=== PATIENT | male | born 1950 | race African-American/Black ===

== ENCOUNTER 2017-10-06 19:49 | Inpatient (IN) ==
[2017-10-06 22:18] LABS: Basophils % 0.4 % (0.0-0.8); Eosinophils % 0.3 % (0.00-10.9); Hematocrit 40.7 VOL% (42.0-52.0); Hemoglobin 13.8 GM/DL (14.0-18.0); Immature Granulocytes % 0.4 %; Immature Granulocytes Absolute 0.03 #; Lymphocytes % 14.8 % (21.2-54.2); Mean Corpuscular HGB Conc 33.9 GM/DL (32-36); Mean Corpuscular Hemoglobin 30 PG (27-34); Mean Corpuscular Volume 89.3 FL (87-102); Mean Platelet Volume 12.8 FL (9.6-12.0); Monocytes # 0.5 10*3/uL (0.11-0.8); Monocytes % 7.9 % (1.7-12.7); Neutrophils # 5.2 10*3/uL (1.4-7.4); Neutrophils % 76.2 % (38.7-73.9); Platelet Count 112 T/CUMM (130-400); Red Blood Count 4.56 MC/CUMM (3.8-5.5); Red Cell Distribution Width 15.7 % (9.3-17.3); White Blood Count 6.9 T/CUMM (4-12)
[2017-10-06 22:47] LABS: Albumin 3.3 G/DL (3.4-5.0); Bilirubin,Total 0.7 MG/DL (0.2-1.0); Calcium 9.1 MG/DL (8.5-10.1); Osmolality,Calculated 278.7 MOS/KG (273-304); Potassium 4.6 MMOL/L (3.5-5.1); Total Protein 7.1 G/DL (6.4-8.3)
[2017-10-06 23:29] LABS: Apearance,Urine CLEAR (Clear); Bilirubin,Urine Negative (Negative); Blood, Urine Small mg/dL (Negative); Glucose,Urine (UA) Negative (Negative); Hyaline Casts,Urine 15 /LPF (0-3); Ketones,Urine Negative (Negative); Mucus,Urine Occasional /LPF (Occasional); Nitrite,Urine Negative (Negative); Protein,Urine Negative; RBC,Urine 1 /HPF (0-4); Squamous Epithelial Cell,Urine Occasional /HPF (0-10); Urine Color Yellow (Yellow); Urine Specific Gravity 1.013 (1.001-1.035); Urine Urobilinogen < 2.0 EU/DL (0.2-1.0); WBC,Urine <1 /HPF (0-6)
[2017-10-06] MEDS ORDERED: LEVOFLOXACIN INJ 500 MG in PREMIX 1 EACH IV STA (23:30)
[2017-10-06] MEDS ORDERED: FUROSEMIDE 40 MG/4 ML VIAL IV STA (23:31)
[2017-10-06] MEDS ORDERED: traZODone 50 MG TABLET PO PRN (23:54)
[2017-10-06] MEDS ORDERED: DOCUSATE SODIUM 100 MG CAPSULE PO PRN (23:54)
[2017-10-06] MEDS ORDERED: ONDANSETRON 4 MG/2 ML VIAL IV PRN (23:54)
[2017-10-07] MEDS ORDERED: GLUCAGON 1 MG VIAL IM PRN (00:05)
[2017-10-07] MEDS ORDERED: DEXTROSE 50% 25 GM/50 ML VIAL IV PRN (00:05)
[2017-10-07] MEDS ORDERED: NITROGLYCERIN SL 0.4 MG TABLET SL PRN (00:11)
[2017-10-07] MEDS ORDERED: CARBOXYMETHYLCELLULOSE 1% OPH SOLN BOTH EYES PRN (00:11)
[2017-10-07] MEDS: ALBUTEROL 2.5 MG/3 ML NEB RESP TX SCH ×4 (01:45→19:45)
[2017-10-07] MEDS: diphenhydrAMINE CAP 25 MG CAPSULE PO SCH ×2 (03:03→21:46)
[2017-10-07] MEDS: ACETAMINOPHEN 325 MG TABLET PO PRN ×2 (03:03→16:59)
[2017-10-07 05:40] LABS: Basophils % 0.3 % (0.0-0.8); Eosinophils % 0.2 % (0.00-10.9); Hematocrit 42.5 VOL% (42.0-52.0); Immature Granulocytes % 0.3 %; Immature Granulocytes Absolute 0.02 #; Lymphocytes % 15.2 % (21.2-54.2); Mean Corpuscular HGB Conc 32.9 GM/DL (32-36); Mean Corpuscular Hemoglobin 30 PG (27-34); Mean Corpuscular Volume 90.6 FL (87-102); Monocytes # 0.5 10*3/uL (0.11-0.8); Monocytes % 7.8 % (1.7-12.7); Neutrophils # 4.8 10*3/uL (1.4-7.4); Neutrophils % 76.2 % (38.7-73.9); Red Blood Count 4.69 MC/CUMM (3.8-5.5); Red Cell Distribution Width 15.9 % (9.3-17.3); White Blood Count 6.3 T/CUMM (4-12)
[2017-10-07 05:44] LABS: Platelet Count 97 T/CUMM (130-400)
[2017-10-07 05:59] LABS: Calcium 8.5 MG/DL (8.5-10.1); Osmolality,Calculated 274.1 MOS/KG (273-304); Potassium 4.5 MMOL/L (3.5-5.1)
[2017-10-07 06:38] LABS: Hypochromasia 1+; Platelet Estimate Decreased
[2017-10-07 06:39] LABS: Ovalocytes Slight
[2017-10-07] MEDS: INSULIN LISPRO 100 UNIT/ML SUBCUT SCH ×4 (08:22→21:45)
[2017-10-07] MEDS: INSULIN NPH/REGULAR 70/30 100 UNIT/ML SUBCUT SCH ×2 (09:16→21:44)
[2017-10-07] MEDS: MONTELUKAST 10 MG TABLET PO SCH (09:16)
[2017-10-07] MEDS: COLCHICINE 0.6 MG TABLET PO SCH ×2 (09:16→21:46)
[2017-10-07] MEDS: FUROSEMIDE 40 MG/4 ML VIAL IV SCH ×2 (09:16→16:56)
[2017-10-07] MEDS: BISOPROLOL 5 MG TABLET PO SCH (09:16)
[2017-10-07] MEDS: ASPIRIN CHEW 81 MG TABLET PO SCH (09:20)
[2017-10-07] MEDS: PANTOPRAZOLE 40 MG TABLET PO SCH (09:20)
[2017-10-07] MEDS: SACUBITRIL/VALSARTAN 49-51 MG TABLET PO SCH ×2 (09:21→21:46)
[2017-10-07] MEDS: ENOXAPARIN 30 MG/0.3 ML SYRINGE SUBCUT SCH (09:21)
[2017-10-07] MEDS: ALLOPURINOL 100 MG TABLET PO SCH ×2 (09:21→21:46)
[2017-10-07] MEDS: ATORVASTATIN 20 MG TABLET PO SCH ×2 (21:46→21:48)
[2017-10-07] MEDS: LEVOFLOXACIN INJ 250 MG in PREMIX 1 EACH IV SCH (23:59)
[2017-10-08] MEDS ORDERED: guaiFENesin/CODEINE 5 ML LIQUID PO PRN (00:42)
[2017-10-08] MEDS: ALBUTEROL 2.5 MG/3 ML NEB RESP TX SCH ×4 (01:28→19:48)
[2017-10-08 06:33] LABS: Basophils % 0.2 % (0.0-0.8); Eosinophils % 0.6 % (0.00-10.9); Hematocrit 41.2 VOL% (42.0-52.0); Immature Granulocytes % 0.4 %; Immature Granulocytes Absolute 0.02 #; Lymphocytes # 0.7 10*3/uL (1.4-4.0); Lymphocytes % 13.9 % (21.2-54.2); Mean Corpuscular Hemoglobin 30 PG (27-34); Mean Corpuscular Volume 86.7 FL (87-102); Mean Platelet Volume 13.1 FL (9.6-12.0); Monocytes # 0.4 10*3/uL (0.11-0.8); Monocytes % 7.7 % (1.7-12.7); Neutrophils % 77.2 % (38.7-73.9); Platelet Count 107 T/CUMM (130-400); Red Blood Count 4.75 MC/CUMM (3.8-5.5); Red Cell Distribution Width 15.4 % (9.3-17.3); White Blood Count 5.2 T/CUMM (4-12)
[2017-10-08 07:01] LABS: Calcium 8.6 MG/DL (8.5-10.1); Osmolality,Calculated 274.1 MOS/KG (273-304); Potassium 4.3 MMOL/L (3.5-5.1)
[2017-10-08] MEDS: INSULIN LISPRO 100 UNIT/ML SUBCUT SCH ×4 (08:26→20:21)
[2017-10-08] MEDS: FUROSEMIDE 40 MG/4 ML VIAL IV SCH ×2 (09:14→18:15)
[2017-10-08] MEDS: ENOXAPARIN 30 MG/0.3 ML SYRINGE SUBCUT SCH (09:14)
[2017-10-08] MEDS: COLCHICINE 0.6 MG TABLET PO SCH ×2 (09:15→20:47)
[2017-10-08] MEDS: INSULIN NPH/REGULAR 70/30 100 UNIT/ML SUBCUT SCH ×2 (09:15→20:22)
[2017-10-08] MEDS: MONTELUKAST 10 MG TABLET PO SCH (09:15)
[2017-10-08] MEDS: ALLOPURINOL 100 MG TABLET PO SCH ×2 (09:16→20:48)
[2017-10-08] MEDS: PANTOPRAZOLE 40 MG TABLET PO SCH (09:16)
[2017-10-08] MEDS: BISOPROLOL 5 MG TABLET PO SCH (09:16)
[2017-10-08] MEDS: SACUBITRIL/VALSARTAN 49-51 MG TABLET PO SCH ×2 (09:16→20:48)
[2017-10-08] MEDS: ASPIRIN CHEW 81 MG TABLET PO SCH (09:16)
[2017-10-08] MEDS: ACETAMINOPHEN 325 MG TABLET PO PRN ×2 (09:30→20:48)
[2017-10-08] MEDS: diphenhydrAMINE CAP 25 MG CAPSULE PO SCH (20:21)
[2017-10-08] MEDS: ATORVASTATIN 20 MG TABLET PO SCH (20:49)
[2017-10-09] MEDS: SODIUM CHLORIDE 0.9% 1,000 ML IV SCH ×2 (00:24→02:04)
[2017-10-09] MEDS: LEVOFLOXACIN INJ 250 MG in PREMIX 1 EACH IV SCH (00:25)
[2017-10-09] MEDS: SODIUM CHLORIDE 0.9% 250 ML IV SCH ×2 (00:31→00:32)
[2017-10-09] MEDS: ALBUTEROL 2.5 MG/3 ML NEB RESP TX SCH ×4 (00:33→19:25)
[2017-10-09 06:34] LABS: Basophils % 0.2 % (0.0-0.8); Eosinophils % 0.6 % (0.00-10.9); Hematocrit 36.9 VOL% (42.0-52.0); Immature Granulocytes % 0.4 %; Immature Granulocytes Absolute 0.02 #; Lymphocytes # 0.7 10*3/uL (1.4-4.0); Lymphocytes % 14.9 % (21.2-54.2); Mean Corpuscular HGB Conc 35.2 GM/DL (32-36); Mean Corpuscular Hemoglobin 30 PG (27-34); Mean Corpuscular Volume 86.2 FL (87-102); Mean Platelet Volume 13.5 FL (9.6-12.0); Monocytes # 0.3 10*3/uL (0.11-0.8); Monocytes % 5.9 % (1.7-12.7); Neutrophils # 3.8 10*3/uL (1.4-7.4); Red Blood Count 4.28 MC/CUMM (3.8-5.5); Red Cell Distribution Width 15.2 % (9.3-17.3); White Blood Count 4.9 T/CUMM (4-12)
[2017-10-09 06:36] LABS: Platelet Count 94 T/CUMM (130-400)
[2017-10-09 06:53] LABS: Calcium 8.2 MG/DL (8.5-10.1); Osmolality,Calculated 277.4 MOS/KG (273-304); Potassium 4.6 MMOL/L (3.5-5.1)
[2017-10-09] MEDS: INSULIN LISPRO 100 UNIT/ML SUBCUT SCH ×4 (07:46→20:07)
[2017-10-09] MEDS: cefTRIAXone 1,000 MG in SYRINGE 1 EACH IV SCH (10:20)
[2017-10-09] MEDS: BISOPROLOL 5 MG TABLET PO SCH ×2 (10:20→13:34)
[2017-10-09] MEDS: ALLOPURINOL 100 MG TABLET PO SCH ×2 (10:21→21:04)
[2017-10-09] MEDS: FUROSEMIDE 40 MG TABLET PO SCH (10:21)
[2017-10-09] MEDS: COLCHICINE 0.6 MG TABLET PO SCH ×2 (10:21→21:04)
[2017-10-09] MEDS: ASPIRIN CHEW 81 MG TABLET PO SCH (10:21)
[2017-10-09] MEDS: PANTOPRAZOLE 40 MG TABLET PO SCH (10:21)
[2017-10-09] MEDS: MONTELUKAST 10 MG TABLET PO SCH (10:21)
[2017-10-09] MEDS: INSULIN NPH/REGULAR 70/30 100 UNIT/ML SUBCUT SCH ×2 (10:22→20:08)
[2017-10-09] MEDS: ACETAMINOPHEN 325 MG TABLET PO PRN (15:34)
[2017-10-09] MEDS: diphenhydrAMINE CAP 25 MG CAPSULE PO SCH (20:56)
[2017-10-09] MEDS: ATORVASTATIN 20 MG TABLET PO SCH (21:04)
[2017-10-10] MEDS: ALBUTEROL 2.5 MG/3 ML NEB RESP TX SCH ×4 (00:40→20:11)
[2017-10-10 06:38] LABS: Basophils % 0.4 % (0.0-0.8); Hematocrit 39.9 VOL% (42.0-52.0); Hemoglobin 13.6 GM/DL (14.0-18.0); Immature Granulocytes % 0.4 %; Immature Granulocytes Absolute 0.02 #; Lymphocytes # 0.9 10*3/uL (1.4-4.0); Lymphocytes % 20.1 % (21.2-54.2); Mean Corpuscular HGB Conc 34.1 GM/DL (32-36); Mean Corpuscular Hemoglobin 30 PG (27-34); Mean Corpuscular Volume 87.5 FL (87-102); Mean Platelet Volume 13.6 FL (9.6-12.0); Monocytes # 0.4 10*3/uL (0.11-0.8); Monocytes % 7.6 % (1.7-12.7); Neutrophils # 3.3 10*3/uL (1.4-7.4); Neutrophils % 71.5 % (38.7-73.9); Platelet Count 95 T/CUMM (130-400); Red Blood Count 4.56 MC/CUMM (3.8-5.5); Red Cell Distribution Width 15.3 % (9.3-17.3); White Blood Count 4.6 T/CUMM (4-12)
[2017-10-10 07:01] LABS: Calcium 8.6 MG/DL (8.5-10.1); Osmolality,Calculated 272.5 MOS/KG (273-304); Potassium 4.8 MMOL/L (3.5-5.1)
[2017-10-10 07:05] LABS: Band Neutrophils 1 % (0-10); Hypochromasia 1+; Lymphocytes 18 % (20-55); Ovalocytes Slight; Platelet Estimate Decreased; Segmented Neutrophils 75 % (50-85); Total Cells Counted 100
[2017-10-10] MEDS: COLCHICINE 0.6 MG TABLET PO SCH ×2 (09:38→20:38)
[2017-10-10] MEDS: ALLOPURINOL 100 MG TABLET PO SCH ×2 (09:38→20:40)
[2017-10-10] MEDS: FUROSEMIDE 40 MG TABLET PO SCH (09:39)
[2017-10-10] MEDS: BISOPROLOL 5 MG TABLET PO SCH (09:39)
[2017-10-10] MEDS: PANTOPRAZOLE 40 MG TABLET PO SCH (09:39)
[2017-10-10] MEDS: MONTELUKAST 10 MG TABLET PO SCH (09:39)
[2017-10-10] MEDS: ASPIRIN CHEW 81 MG TABLET PO SCH (09:39)
[2017-10-10] MEDS: INSULIN LISPRO 100 UNIT/ML SUBCUT SCH ×4 (09:40→20:42)
[2017-10-10] MEDS: cefTRIAXone 1,000 MG in SYRINGE 1 EACH IV SCH (09:40)
[2017-10-10] MEDS: INSULIN NPH/REGULAR 70/30 100 UNIT/ML SUBCUT SCH ×2 (11:25→20:42)
[2017-10-10] MEDS: ATORVASTATIN 20 MG TABLET PO SCH (20:39)
[2017-10-10] MEDS: diphenhydrAMINE CAP 25 MG CAPSULE PO SCH (20:41)
[2017-10-11] MEDS: ALBUTEROL 2.5 MG/3 ML NEB RESP TX SCH ×3 (01:39→14:08)
[2017-10-11 06:52] LABS: Basophils % 0.3 % (0.0-0.8); Eosinophils # 0.1 10*3/uL (0.0-0.87); Hematocrit 37.8 VOL% (42.0-52.0); Hemoglobin 12.8 GM/DL (14.0-18.0); Immature Granulocytes % 0.3 %; Immature Granulocytes Absolute 0.01 #; Lymphocytes # 1.4 10*3/uL (1.4-4.0); Lymphocytes % 39.9 % (21.2-54.2); Mean Corpuscular HGB Conc 33.9 GM/DL (32-36); Mean Corpuscular Hemoglobin 30 PG (27-34); Mean Corpuscular Volume 88.3 FL (87-102); Mean Platelet Volume 13.1 FL (9.6-12.0); Monocytes # 0.4 10*3/uL (0.11-0.8); Monocytes % 11.2 % (1.7-12.7); Neutrophils # 1.6 10*3/uL (1.4-7.4); Neutrophils % 46.3 % (38.7-73.9); Red Blood Count 4.28 MC/CUMM (3.8-5.5); Red Cell Distribution Width 14.8 % (9.3-17.3); White Blood Count 3.5 T/CUMM (4-12)
[2017-10-11 06:54] LABS: Platelet Count 84 T/CUMM (130-400)
[2017-10-11 07:10] LABS: Hypochromasia 1+; Ovalocytes Slight; Platelet Estimate Decreased
[2017-10-11 08:11] LABS: Calcium 8.6 MG/DL (8.5-10.1); Osmolality,Calculated 280.1 MOS/KG (273-304); Potassium 4.3 MMOL/L (3.5-5.1)
[2017-10-11] MEDS: PANTOPRAZOLE 40 MG TABLET PO SCH (10:22)
[2017-10-11] MEDS: ALLOPURINOL 100 MG TABLET PO SCH (10:23)
[2017-10-11] MEDS: cefTRIAXone 1,000 MG in SYRINGE 1 EACH IV SCH (10:23)
[2017-10-11] MEDS: COLCHICINE 0.6 MG TABLET PO SCH (10:23)
[2017-10-11] MEDS: MONTELUKAST 10 MG TABLET PO SCH (10:23)
[2017-10-11] MEDS: ASPIRIN CHEW 81 MG TABLET PO SCH (10:32)
[2017-10-11] MEDS: INSULIN NPH/REGULAR 70/30 100 UNIT/ML SUBCUT SCH (10:32)
[2017-10-11] MEDS: INSULIN LISPRO 100 UNIT/ML SUBCUT SCH ×2 (10:32→13:23)
[2017-10-11] MEDS: FUROSEMIDE 40 MG TABLET PO SCH (10:34)
[2017-10-11] MEDS: BISOPROLOL 5 MG TABLET PO SCH (10:34)
[2017-10-11 11:57] VITALS: BP 101/62
== END 2017-10-11 13:30 | disposition home or self-care (01) | DRG 291 ==
LOC: N.ED 19:49 → N.EDINP 23:49 → SUATTDRO 23:49 → N.5E 10-07 01:26
PROVIDERS: ADMIT Hospitalist; ATTEND Internal Medicine

== ENCOUNTER 2018-12-17 09:43 | Inpatient (IN) ==
[2018-12-17 10:45] LABS: Basophils % 0.5 % (0.0-0.8); Eosinophils # 0.2 10*3/uL (0.0-0.87); Eosinophils % 2.2 % (0.00-10.9); Hematocrit 44.4 VOL% (42.0-52.0); Hemoglobin 14.4 GM/DL (14.0-18.0); Immature Granulocytes % 0.2 %; Immature Granulocytes Absolute 0.02 #; Lymphocytes # 1.5 10*3/uL (1.4-4.0); Mean Corpuscular HGB Conc 32.4 GM/DL (32-36); Mean Corpuscular Volume 88.8 FL (87-102); Mean Platelet Volume 12.4 FL (9.6-12.0); Neutrophils % 69.1 % (38.7-73.9); Platelet Count 200 T/CUMM (130-400); Red Cell Distribution Width 15.9 % (9.3-17.3)
[2018-12-17 10:58] LABS: Bilirubin,Total 0.5 MG/DL (0.2-1.0); Calcium 9.6 MG/DL (8.5-10.1); Osmolality,Calculated 306.4 MOS/KG (273-304); Total Protein 8.4 G/DL (6.4-8.3)
[2018-12-17] MEDS ORDERED: ONDANSETRON 4 MG/2 ML VIAL IV PRN (12:34)
[2018-12-17] MEDS ORDERED: ACETAMINOPHEN 325 MG TABLET PO PRN (12:34)
[2018-12-17] MEDS ORDERED: GLUCAGON 1 MG VIAL IM PRN (12:59)
[2018-12-17] MEDS ORDERED: DEXTROSE 10% 250 ML BAG IV PRN (12:59)
[2018-12-17] MEDS ORDERED: NITROGLYCERIN SL 0.4 MG TABLET SL PRN (13:00)
[2018-12-17] MEDS ORDERED: traMADol 50 MG TABLET PO PRN (13:00)
[2018-12-17] MEDS ORDERED: CARBOXYMETHYLCELLULOSE 1% OPH SOLN BOTH EYES PRN (13:00)
[2018-12-17] MEDS: LACTATED RINGERS 1,000 ML IV SCH (15:07)
[2018-12-17] MEDS ORDERED: INSULIN REGULAR 100 UNIT/ML SUBCUT SCH (16:30)
[2018-12-17] MEDS: carvediloL 3.125 MG TABLET PO SCH (16:36)
[2018-12-17] MEDS ORDERED: INSULIN NPH/REGULAR 70/30 100 UNIT/ML SUBCUT SCH (19:00)
[2018-12-17] MEDS: MONTELUKAST 10 MG TABLET PO SCH (22:10)
[2018-12-17] MEDS: hydrALAZINE 10 MG TABLET PO SCH (22:10)
[2018-12-17] MEDS: INSULIN NPH/REGULAR 70/30 100 UNIT/ML SUBCUT SCH (22:11)
[2018-12-17] MEDS: LACTULOSE 20 GM/30 ML UDCUP PO SCH (22:11)
[2018-12-17] MEDS: ALLOPURINOL 100 MG TABLET PO SCH (22:11)
[2018-12-17] MEDS: ATORVASTATIN 20 MG TABLET PO SCH (22:11)
[2018-12-18] MEDS: LACTATED RINGERS 1,000 ML IV SCH ×2 (03:44→14:59)
[2018-12-18 05:03] LABS: Basophils # 0.1 10*3/uL (0.0-0.2); Basophils % 0.6 % (0.0-0.8); Eosinophils # 0.3 10*3/uL (0.0-0.87); Eosinophils % 3.4 % (0.00-10.9); Hematocrit 43.3 VOL% (42.0-52.0); Immature Granulocytes % 0.3 %; Immature Granulocytes Absolute 0.02 #; Lymphocytes # 2.1 10*3/uL (1.4-4.0); Lymphocytes % 26.9 % (21.2-54.2); Mean Corpuscular HGB Conc 32.3 GM/DL (32-36); Mean Corpuscular Volume 88.2 FL (87-102); Mean Platelet Volume 13.3 FL (9.6-12.0); Monocytes % 10.1 % (1.7-12.7); Neutrophils % 58.7 % (38.7-73.9); Platelet Count 179 T/CUMM (130-400); Red Blood Count 4.91 MC/CUMM (3.8-5.5); Red Cell Distribution Width 15.9 % (9.3-17.3); White Blood Count 7.7 T/CUMM (4-12)
[2018-12-18 05:19] LABS: Calcium 9.8 MG/DL (8.5-10.1); Osmolality,Calculated 304.7 MOS/KG (273-304)
[2018-12-18] MEDS: ALLOPURINOL 100 MG TABLET PO SCH ×2 (09:18→22:14)
[2018-12-18] MEDS: CHOLECALCIFEROL 1,000 UNIT TABLET PO SCH (09:18)
[2018-12-18] MEDS: hydrALAZINE 10 MG TABLET PO SCH ×2 (09:18→22:15)
[2018-12-18] MEDS: LACTULOSE 20 GM/30 ML UDCUP PO SCH ×2 (09:19→22:13)
[2018-12-18] MEDS: AMIODARONE 200 MG TABLET PO SCH (09:19)
[2018-12-18] MEDS: INSULIN NPH/REGULAR 70/30 100 UNIT/ML SUBCUT SCH ×2 (09:19→22:49)
[2018-12-18] MEDS: PANTOPRAZOLE 40 MG TABLET PO SCH (09:19)
[2018-12-18] MEDS: ASPIRIN CHEW 81 MG TABLET PO SCH (09:19)
[2018-12-18] MEDS: carvediloL 3.125 MG TABLET PO SCH ×2 (09:19→16:56)
[2018-12-18] MEDS: DOBUTamine 500 MG/250 ML PREMIX IV SCH ×2 (10:42→23:03)
[2018-12-18] MEDS ORDERED: POTASSIUM CHLORIDE 20 MEQ TABLET PO ONE (14:02)
[2018-12-18] MEDS ORDERED: MAGNESIUM CITRATE 300 ML BOTTLE PO ONE (15:01)
[2018-12-18] MEDS ORDERED: BISACODYL 5 MG TABLET PO PRN (15:02)
[2018-12-18] MEDS: MONTELUKAST 10 MG TABLET PO SCH (22:13)
[2018-12-18] MEDS: diphenhydrAMINE CAP 25 MG CAPSULE PO SCH (22:13)
[2018-12-18] MEDS: ATORVASTATIN 20 MG TABLET PO SCH (22:14)
[2018-12-19] MEDS ORDERED: SODIUM PHOSPHATE ENEMA 133 ML BOTTLE RECTAL ONE (01:02)
[2018-12-19] MEDS: LACTATED RINGERS 1,000 ML IV SCH ×2 (02:26→15:00)
[2018-12-19 04:29] LABS: Basophils % 0.5 % (0.0-0.8); Eosinophils # 0.3 10*3/uL (0.0-0.87); Eosinophils % 4.2 % (0.00-10.9); Hematocrit 38.7 VOL% (42.0-52.0); Hemoglobin 12.4 GM/DL (14.0-18.0); Immature Granulocytes % 0.4 %; Immature Granulocytes Absolute 0.03 #; Lymphocytes # 1.6 10*3/uL (1.4-4.0); Lymphocytes % 20.7 % (21.2-54.2); Mean Corpuscular Volume 89.2 FL (87-102); Mean Platelet Volume 13.4 FL (9.6-12.0); Monocytes % 10.6 % (1.7-12.7); Neutrophils % 63.6 % (38.7-73.9); Platelet Count 145 T/CUMM (130-400); Red Blood Count 4.34 MC/CUMM (3.8-5.5); Red Cell Distribution Width 15.9 % (9.3-17.3); White Blood Count 7.6 T/CUMM (4-12)
[2018-12-19 04:45] LABS: Calcium 9.3 MG/DL (8.5-10.1); Osmolality,Calculated 301.5 MOS/KG (273-304)
[2018-12-19] MEDS: AMIODARONE 200 MG TABLET PO SCH (08:12)
[2018-12-19] MEDS: CHOLECALCIFEROL 1,000 UNIT TABLET PO SCH (08:12)
[2018-12-19] MEDS: ASPIRIN CHEW 81 MG TABLET PO SCH (08:12)
[2018-12-19] MEDS: hydrALAZINE 10 MG TABLET PO SCH ×2 (08:12→21:21)
[2018-12-19] MEDS: LACTULOSE 20 GM/30 ML UDCUP PO SCH ×3 (08:12→21:24)
[2018-12-19] MEDS: PANTOPRAZOLE 40 MG TABLET PO SCH (08:12)
[2018-12-19] MEDS: ALLOPURINOL 100 MG TABLET PO SCH ×2 (08:13→21:21)
[2018-12-19] MEDS: carvediloL 3.125 MG TABLET PO SCH ×2 (08:13→16:55)
[2018-12-19] MEDS: INSULIN NPH/REGULAR 70/30 100 UNIT/ML SUBCUT SCH ×2 (08:19→21:22)
[2018-12-19] MEDS: DOBUTamine 500 MG/250 ML PREMIX IV SCH (12:07)
[2018-12-19] MEDS: diphenhydrAMINE CAP 25 MG CAPSULE PO SCH (21:21)
[2018-12-19] MEDS: ATORVASTATIN 20 MG TABLET PO SCH (21:21)
[2018-12-19] MEDS: MONTELUKAST 10 MG TABLET PO SCH (21:21)
[2018-12-20] MEDS: DOBUTamine 500 MG/250 ML PREMIX IV SCH ×2 (00:23→14:10)
[2018-12-20] MEDS: LACTATED RINGERS 1,000 ML IV SCH ×2 (03:22→16:05)
[2018-12-20 06:13] LABS: Basophils % 0.4 % (0.0-0.8); Eosinophils # 0.5 10*3/uL (0.0-0.87); Eosinophils % 6.7 % (0.00-10.9); Hematocrit 35.6 VOL% (42.0-52.0); Hemoglobin 11.5 GM/DL (14.0-18.0); Immature Granulocytes % 0.1 %; Immature Granulocytes Absolute 0.01 #; Lymphocytes # 2.1 10*3/uL (1.4-4.0); Lymphocytes % 27.5 % (21.2-54.2); Mean Corpuscular HGB Conc 32.3 GM/DL (32-36); Mean Corpuscular Volume 88.6 FL (87-102); Mean Platelet Volume 12.4 FL (9.6-12.0); Monocytes % 6.9 % (1.7-12.7); Neutrophils % 58.4 % (38.7-73.9); Platelet Count 129 T/CUMM (130-400); Red Blood Count 4.02 MC/CUMM (3.8-5.5); White Blood Count 7.8 T/CUMM (4-12)
[2018-12-20 06:37] LABS: Calcium 8.6 MG/DL (8.5-10.1); Osmolality,Calculated 283.7 MOS/KG (273-304)
[2018-12-20] MEDS ORDERED: POTASSIUM CHLORIDE 20 MEQ TABLET PO ONE (08:29)
[2018-12-20] MEDS: AMIODARONE 200 MG TABLET PO SCH (08:31)
[2018-12-20] MEDS: CHOLECALCIFEROL 1,000 UNIT TABLET PO SCH (08:31)
[2018-12-20] MEDS: INSULIN NPH/REGULAR 70/30 100 UNIT/ML SUBCUT SCH ×2 (08:31→21:52)
[2018-12-20] MEDS: carvediloL 3.125 MG TABLET PO SCH ×2 (08:31→17:21)
[2018-12-20] MEDS: ASPIRIN CHEW 81 MG TABLET PO SCH (08:31)
[2018-12-20] MEDS: ALLOPURINOL 100 MG TABLET PO SCH ×2 (08:31→21:11)
[2018-12-20] MEDS: PANTOPRAZOLE 40 MG TABLET PO SCH (08:31)
[2018-12-20] MEDS: hydrALAZINE 10 MG TABLET PO SCH ×2 (08:31→21:14)
[2018-12-20] MEDS: LACTULOSE 20 GM/30 ML UDCUP PO SCH ×2 (08:32→21:14)
[2018-12-20] MEDS: diphenhydrAMINE CAP 25 MG CAPSULE PO SCH (21:11)
[2018-12-20] MEDS: MONTELUKAST 10 MG TABLET PO SCH (21:11)
[2018-12-20] MEDS: ATORVASTATIN 20 MG TABLET PO SCH (21:11)
[2018-12-21] MEDS: LACTATED RINGERS 1,000 ML IV SCH ×2 (04:44→07:34)
[2018-12-21 06:08] LABS: Basophils % 0.4 % (0.0-0.8); Eosinophils # 0.4 10*3/uL (0.0-0.87); Eosinophils % 5.1 % (0.00-10.9); Hematocrit 39.5 VOL% (42.0-52.0); Hemoglobin 12.5 GM/DL (14.0-18.0); Immature Granulocytes % 0.4 %; Immature Granulocytes Absolute 0.03 #; Lymphocytes # 1.5 10*3/uL (1.4-4.0); Lymphocytes % 18.4 % (21.2-54.2); Mean Corpuscular HGB Conc 31.6 GM/DL (32-36); Mean Corpuscular Volume 90.2 FL (87-102); Mean Platelet Volume 13.8 FL (9.6-12.0); Monocytes % 3.9 % (1.7-12.7); Neutrophils % 71.8 % (38.7-73.9); Platelet Count 129 T/CUMM (130-400); Red Blood Count 4.38 MC/CUMM (3.8-5.5); Red Cell Distribution Width 16.3 % (9.3-17.3); White Blood Count 8.3 T/CUMM (4-12)
[2018-12-21 06:19] LABS: Calcium 9.1 MG/DL (8.5-10.1); Osmolality,Calculated 287.3 MOS/KG (273-304)
[2018-12-21] MEDS: carvediloL 3.125 MG TABLET PO SCH (07:35)
[2018-12-21] MEDS: CHOLECALCIFEROL 1,000 UNIT TABLET PO SCH (09:25)
[2018-12-21] MEDS: PANTOPRAZOLE 40 MG TABLET PO SCH (09:25)
[2018-12-21] MEDS: AMIODARONE 200 MG TABLET PO SCH (09:26)
[2018-12-21] MEDS: ALLOPURINOL 100 MG TABLET PO SCH (09:27)
[2018-12-21] MEDS: ASPIRIN CHEW 81 MG TABLET PO SCH (09:31)
[2018-12-21] MEDS: hydrALAZINE 10 MG TABLET PO SCH (09:32)
[2018-12-21] MEDS: LACTULOSE 20 GM/30 ML UDCUP PO SCH (09:33)
[2018-12-21 11:46] VITALS: BP 92/61
[2018-12-21] MEDS: INSULIN NPH/REGULAR 70/30 100 UNIT/ML SUBCUT SCH (12:38)
== END 2018-12-21 16:16 | disposition home or self-care (01) | DRG 641 ==
LOC: N.ED 09:43 → N.EDINP 09:43 → SUATTDRO 12:34 → N.TELEN 12:51 → SUATTDRO 12-19 16:45
PROVIDERS: ADMIT Internal Medicine Geriatric Medicine; ATTEND Internal Medicine Nephrology